=== PATIENT | female | born 1955 | race African-American/Black ===

== ENCOUNTER 2022-07-07 04:37 | Day surgery (SDC) | payer OTHER ==
[2022-07-02 15:39] VITALS: BMI 24.7
[2022-07-07 10:30] VITALS: TEMP 98
[2022-07-07 10:58] VITALS: PULSE 60
[2022-07-07 11:07] VITALS: BP 136/74; RESP 19
== END 2022-07-07 11:14 | disposition home or self-care (01) ==
LOC: JASU-ENDO 04:37
PROVIDERS: ATTEND Internal Medicine Gastroenterology
PROC: 0DBL8ZX Excision of Transverse Colon, Via Natural or Artificial Opening Endoscopic, Diagnostic (ICD-10-PCS; 2022-07-07)
PROC: 0DBK8ZX Excision of Ascending Colon, Via Natural or Artificial Opening Endoscopic, Diagnostic (ICD-10-PCS; 2022-07-07)
PROC: 0DBH8ZX Excision of Cecum, Via Natural or Artificial Opening Endoscopic, Diagnostic (ICD-10-PCS; 2022-07-07)
PROC: 0DBK8ZX Excision of Ascending Colon, Via Natural or Artificial Opening Endoscopic, Diagnostic (ICD-10-PCS; principal; 2022-07-07 10:00)
DX: Z12.11 Encounter for screening for malignant neoplasm of colon (principal); D12.0 Benign neoplasm of cecum; D12.2 Benign neoplasm of ascending colon; D12.3 Benign neoplasm of transverse colon; K64.8 Other hemorrhoids; I10 Essential (primary) hypertension
CPT/HCPCS: 88305-TC

== ENCOUNTER 2022-11-03 05:59 | Day surgery (SDC) | payer OTHER ==
[2022-10-29 14:45] VITALS: BMI 25.3
[2022-11-03 09:36] VITALS: TEMP 98
[2022-11-03 09:58] VITALS: BP 120/62; PULSE 66; RESP 12
== END 2022-11-03 09:15 | disposition home or self-care (01) ==
LOC: JASU-ENDO 05:59
PROVIDERS: ATTEND Internal Medicine Gastroenterology
PROC: 0DBL8ZX Excision of Transverse Colon, Via Natural or Artificial Opening Endoscopic, Diagnostic (ICD-10-PCS; 2022-11-03)
PROC: 0DBM8ZX Excision of Descending Colon, Via Natural or Artificial Opening Endoscopic, Diagnostic (ICD-10-PCS; principal; 2022-11-03 08:00)
DX: K63.5 Polyp of colon (principal); Z86.010 Personal history of colon polyps; K64.8 Other hemorrhoids; K57.30 Diverticulosis of large intestine without perforation or abscess without bleeding
CPT/HCPCS: 88305-TC